=== PATIENT | female | born 1970 | race Caucasian/White ===

== ENCOUNTER → 2023-09-27 17:35 | Outpatient (REF) | payer BC, SELFPAY | LOC: PAVMRI 17:35 | PROVIDERS: ATTENDING PHYSICIAN Family Medicine | DX: G43.009 Migraine without aura, not intractable, without status migrainosus (principal); R90.89 Other abnormal findings on diagnostic imaging of central nervous system | CPT/HCPCS: 70551 ==

== ENCOUNTER → 2024-02-14 07:27 | Outpatient (REF) | payer BC, SELFPAY | LOC: RAD 07:27 | PROVIDERS: ATTENDING PHYSICIAN Family Medicine | DX: M85.89 Other specified disorders of bone density and structure, multiple sites (principal); Z13.820 Encounter for screening for osteoporosis | CPT/HCPCS: 77080 ==

== ENCOUNTER → 2024-08-25 15:54 | Outpatient (REF) | payer BC, SELFPAY | LOC: MRI 3T 15:54 | PROVIDERS: ATTENDING PHYSICIAN Family Medicine | DX: R42 Dizziness and giddiness (principal); R20.1 Hypoesthesia of skin; G43.009 Migraine without aura, not intractable, without status migrainosus; R90.89 Other abnormal findings on diagnostic imaging of central nervous system | CPT/HCPCS: 70551 ==